=== PATIENT | male | born 1955 | race Caucasian/White ===

== ENCOUNTER 2019-07-16 10:54 | Emergency (ER) | payer OTHER, SELFPAY ==
--- NOTE | ~2019-07-16 | CT_ITS ---
EXAMINATION: CT cervical spine wo con DATE: 07/16/2019 11:51 INDICATION: Fall with head injury TECHNIQUE: Computed tomography (CT) of the cervical spine was performed without intravenous contrast. Automated exposure control and iterative reconstruction technique were employed. The dose-length pro duct was 227.96 mGy-cm. COMPARISON: None FINDINGS: Cervical levoscoliosis. 3 mm retrolisthesis C3 on C4 and 2 mm retrolisthesis C4 on C5. Diffuse lytic and sclerotic lesions throughout the bones consistent with widespread osseous metastatic disease. The re are numerous pathologic fractures. Nondisplaced fracture involving the left lateral mass of C1. No ndisplaced transverse 2 odontoid fracture across the base of the dens. Minimally displaced oblique fr acture extending across the C3 vertebral body involving both the anterior and posterior herrera and wit h mild associated vertebral body height loss. A couple millimeter retropulsion of the inferior labor commissioner ior wall resulting in mild central canal stenosis. Nondisplaced fractures at the left and right later al masses of C4. There is mild distraction of fracture extending across the spinous processes of C7, T1 and T2. Nondisplaced fractures of the right lateral mass of C7 and right transverse processes of T 1 and T2. Nondisplaced fracture of the left and right lateral masses of T3 which extends across the c ephalad aspect of the spinous process. Minimally displaced extra articular fracture at the medial lef t clavicle. Moderate disc height loss at C6-C7 with posterior disc osteophyte complex resulting in mi ld central canal stenosis. Mild disc height loss at many of the remaining cervical levels. Peripheral predominant groundglass opacities at the bilateral apices which could represent pneumonia, pulmonary edema or atelectasis/scarring. IMPRESSION: 1. Diffuse mixed lytic/sclerotic pattern throughout the bones consistent with widespread metastatic d isease. 2. Multiple pathologic fractures and thoracic spine as well as the medial left clavicle as detailed a willem. This includes a type II odontoid fracture, a C3 burst fracture with mild retropulsion and multi ple lateral mass and spinous process fractures in the mid cervical to upper thoracic spine. Dr. Collin constantino discussed these findings with JANET Wadsworth at 11:55 AM. Reviewed, dictated and finalized at location A. IMPRESSION: 1. Diffuse mixed lytic/sclerotic pattern throughout the bones consistent with w idespread metastatic disease. 2. Multiple pathologic fractures and thoracic spine as well as the medial left clavicle as detailed above. This includes a type II odontoid fracture, a C3 bur st fracture with mild retropulsion and multiple lateral mass and spinous proces s fractures in the mid cervical to upper thoracic spine. Dr. Liang discussed these findings with JANET Wadsworth at 11:55 AM.
--- NOTE | ~2019-07-16 | XR_ITS ---
XR hip LT min 3V w AP pelvis 07/16/2019 12:09 Indication: Hip pain after fall Procedure: 4 views left hip including AP pelvis Comparison: No prior studies for comparison. Findings: There is a mildly displaced fracture of lesser trochanter of the left femur with adjacent m ixed osteolytic and sclerotic areas, possibly pathologic fracture. There is patchy sclerosis througho ut the pelvis and proximal femurs, consistent with metastatic disease. Impression: 1: Mildly displaced fracture lesser trochanter of the left femur, possibly pathologic. 2: Patchy areas of sclerosis involving the pelvis and proximal aspect of the femurs, consistent with metastatic disease. Reviewed, dictated and finalized at location A. Impression: 1: Mildly displaced fracture lesser trochanter of the left femur, possibly path ologic. 2: Patchy areas of sclerosis involving the pelvis and proximal aspect of the fe murs, consistent with metastatic disease.
--- NOTE | ~2019-07-16 | XR_ITS ---
XR humerus LT 07/16/2019 12:09 Indication: Left arm pain after fall Procedure: 2 views left humerus Comparison: No prior studies for comparison. Findings: There is mixed sclerosis and osteophyte lysis of the proximal humeral shaft. There is a dis placed oblique extra-articular fracture of the proximal humeral diaphysis in the area of trabecular a bnormality, possibly pathologic fracture. Impression: 1: Oblique extra-articular fracture proximal left humeral diaphysis with medial displacement and late ral angulation, possibly pathologic. Reviewed, dictated and finalized at location A. Impression: 1: Oblique extra-articular fracture proximal left humeral diaphysis with medial displacement and lateral angulation, possibly pathologic.
--- NOTE | ~2019-07-16 | CT_ITS ---
EXAMINATION: CT brain wo con DATE: 07/16/2019 11:49 INDICATION: Status post fall. TECHNIQUE: Computed tomography (CT) of the head was performed without intravenous contrast. The dose- length product was 681.00 mGy-cm. The mA was adjusted according to patient size. Iterative reconstruc tion technique was employed. COMPARISON: None FINDINGS: Mild generalized brain parenchymal volume loss. Prominent perivascular space right basal ga nglia. No acute intracranial hemorrhage, infarction, mass or mass effect. There is a right frontal sc alp hematoma. There are scattered mild periventricular and subcortical white matter changes, most lik ermelinda related to small vessel ischemic disease (microangiopathy). No depressed skull fractures. Paranas al sinuses and mastoids are pneumatized. There is a mucous retention cyst left maxillary sinus. IMPRESSION: 1. No acute intracranial abnormality. Reviewed, dictated and finalized at location A.
--- NOTE | ~2019-07-16 | CT_ITS ---
EXAMINATION: CT lumbar spine wo con DATE: 07/16/2019 11:53 INDICATION: Low back injury. TECHNIQUE: Computed tomography (CT) of the lumbar spine was performed without intravenous contrast. A utomated exposure control and iterative reconstruction technique were employed. The dose-length produ ct was 1154.03 mGy-cm. COMPARISON: None FINDINGS: There are bilateral pleural effusions. There are stones in right kidney measuring up to 5 m m. There is aortocaval and right external iliac lymphadenopathy. There is 9 degrees levocurvature of lumbar spine. There is 3 mm retrolisthesis of L1 on L2 and 3 mm anterolisthesis of L5 on S1. There is mild chronic anterior wedging of T11-L1 vertebral bodies. There is a mixed lytic and sclerotic patte rn throughout all of the bones. There are healing fractures of right 11th and 12th ribs and left 10th and 12th ribs. There is a fracture of right T11 transverse process. There are old fractures of left L2 transverse process and the bilateral L3 transverse processes and right L4 transverse process. Ther e is moderately decreased disc height at L1-L2, L2-L3, L3-L4, and L5-S1 and severely decreased disc h eight at L4-L5. The following disc levels are specifically discussed: L1-L2: The disc does not extend beyond the endplate margin. There is mild bilateral facet joint osteo arthritis. There is moderate right and mild left neural foraminal stenosis. There is mild central can al stenosis. L2-L3: The disc is bulging. There is mild bilateral facet joint osteoarthritis. There is mild bilater al neural foraminal stenosis. There is mild central canal stenosis. L3-L4: The disc is bulging. There is mild bilateral facet joint osteoarthritis. There is moderate luis eduardo ateral neural foraminal stenosis. There is mild central canal stenosis. L4-L5: The disc is bulging. There is severe right and moderate left facet joint osteoarthritis. There is moderate bilateral neural foraminal stenosis. There is mild central canal stenosis. L5-S1: The disc is bulging. There is moderate bilateral facet joint osteoarthritis. There is moderate bilateral neural foraminal stenosis. There is mild central canal stenosis. IMPRESSION: 1. Multiple healing rib fractures and lumbar transverse process fractures. Age-indeterminant right T1 1 transverse process fracture. 2. Widespread mixed lytic and sclerotic pattern in the bones, consistent with metastatic disease. 3. Severe lumbar spondylosis. 4. Bilateral pleural effusions. Reviewed, dictated and finalized at location E. IMPRESSION: 1. Multiple healing rib fractures and lumbar transverse process fractures. Age- indeterminant right T11 transverse process fracture. 2. Widespread mixed lytic and sclerotic pattern in the bones, consistent with m etastatic disease. 3. Severe lumbar spondylosis. 4. Bilateral pleural effusions.
[2019-07-16 10:54] VITALS: BP 148/98; PULSE 126; RESP 20; TEMP 37; O2SAT 92
[2019-07-16 11:06] VITALS: O2SAT 97
--- NOTE | 2019-07-16 11:30 | ECG_ITS ---
Measurements Intervals Walsh Rate: 116 P: 17 IA: 142 QRS: -18 QRSD: 108 T: 1 QT: 312 QTc: 434 Interpretive Statements SINUS TACHYCARDIA DELAYED PRECORDIAL R/S TRANSITION BORDERLINE T WAVE ABNORMALITY- INFERIOR LEADS ABNORMAL ECG Electronically Signed On 07-16-2019 12:35:47 CDT by Eren Allen D.O.
--- NOTE | 2019-07-16 11:42 | PC.NURSE ---
Pt taken to CT at this time
--- NOTE | 2019-07-16 12:15 | PC.NURSE ---
Chao GONZALES and this RN speaking to pt and mother about condition.
[2019-07-16] MEDS: MORPHINE SULFATE 4 MG/ML INJ IV PUSH (12:25)
[2019-07-16] MEDS: SODIUM CHLORIDE 0.9% IV 1,000 ML 999 ML IV CONT (12:26)
[2019-07-16 12:36] VITALS: BP 153/85; PULSE 115; RESP 21; O2SAT 93
[2019-07-16 12:37] VITALS: BP 149/83; PULSE 125; RESP 22; O2SAT 96
[2019-07-16 12:43] LABS: Immature Platelet Fraction Pct 2.4 % (0.9-11.2); Mean Corpuscular HGB Conc 29.9 g/dl (32-36); Mean Corpuscular Volume 93.7 fl (80-100); Mean Platelet Volume 8.8 fl (7.4-10.4); Platelet Count Result 80 k/mm3 (150-375); Red Blood Count 2.07 M/mm3 (4.6-6.20); Red Cell Distribution Width 21.2 % (11.5-14.5); White Blood Count 17.3 K/mm3 (4.5-10.0)
[2019-07-16 12:52] LABS: Ammonia < 9 umol/L (9-30)
[2019-07-16 12:54] LABS: Partial Thromboplastin Time 37.2 SECONDS (22.3-36.8)
--- NOTE | 2019-07-16 12:54 | ED.GENADULT ---
HPI - General Adult General Chief complaint: Fall <Malachi Wadsworth PA-C - Last Filed: 07/16/19 13:01> Stated complaint: fall <Malachi Wadsworth PA-C - Last Filed: 07/16/19 13:01> Time Seen by Provider: 07/16/19 11:13 <Malachi Wadsworth PA-C - Last Filed: 07/16/19 13:01> Source: patient <Malachi Wadsworth PA-C - Last Filed: 07/16/19 13:01> Mode of arrival: ambulatory <Malachi Wadsworth PA-C - Last Filed: 07/16/19 13:01> Limitations: no limitations <Malachi Wadsworth PA-C - Last Filed: 07/16/19 13:01> History of Present Illness HPI narrative: Patient is a 64-year-old male who presents per EMS for evaluation of ground-level fall occurred just prior to arrival patient notes that he fell forward while walking with multiple injuries presents per EMS C-spine immobilization in place patient with head injury left humerus injury left hip injury neck and low back pain patient notes he has no doctor takes no medications is never had surgery patient notes over the last 4 months he has been not feeling well and over the last month has began to have yellow discoloration of the skin. Patient denies alcohol abuse. Patient has not taken anything for his symptoms. <Malachi Wadsworth PA-C - Last Filed: 07/16/19 13:01> Related Data Home medications: Home Medications Medication Instructions Recorded Confirmed No Home Medications 07/16/19 07/16/19 <Malachi Wadsworth PA-C - Last Filed: 07/16/19 13:01> Allergies/adverse reactions: Allergies Allergy/AdvReac Type Severity Reaction Status Date / Time No Known Allergies Allergy Verified 07/16/19 11:12 <Malachi Wadsworth PA-C - Last Filed: 07/16/19 13:01> Review of Systems Review of Systems: All systems reviewed & are unremarkable except as noted in HPI and below <Malachi Wadsworth PA-C - Last Filed: 07/16/19 13:01> [facility] Social History Social History: Social History (Updated 07/16/19 @ 12:55 by Malachi Wadsworth PA-C) Smoking status: Current every day smoker Alcohol intake: former Gender identity (if verbalized by the patient): Male <Malachi Wadsworth PA-C - Last Filed: 07/16/19 13:01> Exam Narrative: Exam Narrative: GENERAL: Ill-appearing, well-nourished, and in no acute distress. HEAD: Normocephalic, hematoma and abrasion of the right forehead EYES: PERRLA and EOMI. scleral icterus ENT: Nares clear, no rhinorrhea or epistaxis. Mucous membranes moist. Oropharynx without tonsillar hypertrophy exudate or other lesions. NECK: Supple. No adenopathy or masses. CHEST: Clear to auscultation. No respiratory distress. No wheezes rales or rhonchi HEART: Regular rate and rhythm. No murmur heard. Normal peripheral pulses. ABDOMEN: Soft, nontender, nondistended, normal active bowel sounds. EXTREMITIES: Patient with tenderness of the cervical and thoracic and lumbar spine. Tenderness of the left humerus and left hip. SKIN: Warm, dry, no rash. Patient presents with jaundice NEURO: No focal deficits. Alert and oriented x3. GCS of 15. Cranial nerves II through XII grossly intact PSYCH: Normal mood and affect. <Malachi Wadsworth PA-C - Last Filed: 07/16/19 13:01> Course Course Emergency Course: Patient in the room at this time aware of case findings treatment plan and diagnosis agreeing to transfer to tertiary facility <Malachi Wadsworth PA-C - Last Filed: 07/16/19 13:01> [employer]OUN[employer] SUPERINTENDANT/PA Physician Supervision For this encounter, I have reviewed the PA documentation, treatment plan and medical decision making: And I have had [id number] time with the patient. Patient has scleral icterus. Heart is regular rate and rhythm with a grade 2 out of 6 stock ejection murmur lungs clear all station bilaterally abdomen soft nontender. Discussed with patient results of work-up including concern of cancer discussed need for transfer patient agreement at this time will transfer to trauma center for further evaluation <Miles Godoy
[2019-07-16 12:59] LABS: Alanine Aminotransferase 70 U/L (4-50); Albumin Level 3.1 g/dL (3.5-5.1); Alkaline Phosphatase 1123 U/L (38-126); Aspartate Amino Transferase 179 U/L (17-59); Bilirubin,Total 5.1 mg/dL (0.2-1.3); Blood Urea Nitrogen 32 mg/dL (9-20); Calcium 11.1 mg/dL (8.4-10.2); Carbon Dioxide 25 mmol/L (22-30); Chloride 105 mmol/L (98-107); Estimated CRCL calculation 93 ml/min; Estimated Glomerular Filt Rate > 60; Glucose 137 mg/dL (75-110); Lipase 170 U/L (23-300); Potassium 3.7 mmol/L (3.4-5.0); Sodium 136 mmol/L (137-145)
[2019-07-16 13:00] LABS: Hematocrit 19.4 % (42.0-52.0); Hemoglobin 5.8 g/dL (14.0-18.0)
[2019-07-16 13:03] LABS: Band Neutrophils Percent 5 % (0-6); Eosinophils Absolute Manual 1.21 K/mm3 (0.02-0.5); Eosinophils Percent Manual 7 % (0-4); Lymphocytes Absolute Manual 2.42 K/mm3 (1.1-4.5); Metamyelocytes Percent 3 %; Monocytes Absolute Manual 1.38 K/mm3 (0.1-0.90); Monocytes Percent Manual 8 % (3-9); Neutrophils Absolute Manual 11.76 K/mm3 (1.3-6.7); Neutrophils Percent Manual 63 % (46-73); Nucleated Red Blood Cells 26 %; Total Cells Counted 100
[2019-07-16 13:06] LABS: Platelet Estimate Decreased (Adequate)
[2019-07-16 13:07] LABS: Poikilocytosis 2+ (NORMAL); Tear Drop Cells 1+ (NORMAL)
[2019-07-16 13:10] LABS: Troponin I 0.015 ng/mL (0.000-0.034)
[2019-07-16 13:41] VITALS: BP 147/75; PULSE 107; RESP 18; O2SAT 94
== END 2019-07-16 13:33 | disposition short-term general hospital (02) ==
PROVIDERS: Emergency Medicine Emergency Medical Services; Emergency Provider Emergency Medicine
DX: S49.092A Other physeal fracture of upper end of humerus, left arm, initial encounter for closed fracture (principal); S72.122A Displaced fracture of lesser trochanter of left femur, initial encounter for closed fracture; S22.088A Other fracture of T11-T12 vertebra, initial encounter for closed fracture; S12.041A Nondisplaced lateral mass fracture of first cervical vertebra, initial encounter for closed fracture; S12.290A Other displaced fracture of third cervical vertebra, initial encounter for closed fracture; S12.391A Other nondisplaced fracture of fourth cervical vertebra, initial encounter for closed fracture; S12.691A Other nondisplaced fracture of seventh cervical vertebra, initial encounter for closed fracture; R17 Unspecified jaundice; C79.51 Secondary malignant neoplasm of bone; D64.9 Anemia, unspecified; M47.816 Spondylosis without myelopathy or radiculopathy, lumbar region; F17.200 Nicotine dependence, unspecified, uncomplicated; W01.0XXA Fall on same level from slipping, tripping and stumbling without subsequent striking against object, initial encounter; R00.0 Tachycardia, unspecified; R94.31 Abnormal electrocardiogram [ECG] [EKG]
CPT/HCPCS: 36415; 70450; 72125; 72131; 73060; 73502; 80053; 82140; 83690; 84484; 85025; 85055; 85610; 85730; 93005; 96361; 96374; 99285; J2270; J7030; L0140